=== PATIENT | male | born 1980 ===

== ENCOUNTER → 2023-06-30 | Outpatient (REF) | payer OTHER ==
[2023-06-30 11:25] LABS: SEMEN APPEARANCE OPAQUE (OPAQUE); SEMEN VOLUME 3.4 ml (2.0-5.0)
[2023-06-30 11:26] LABS: SEMEN VISCOSITY LIQUID (LIQUID); SEMEN pH 8.5 (7.0-8.0); WBC CONCENTRATION >1 M/ml (<=1 M/ml)
== END ==
LOC: M LAB REF 11:11
PROVIDERS: ATTEND Preventive Medicine Undersea and Hyperbaric Medicine
DX: Z30.2 Encounter for sterilization (principal)